=== PATIENT | male | born 2000 | race Caucasian/White ===

== ENCOUNTER 2020-01-09 14:26 | Emergency (ER) | payer BC, SELFPAY | END 2020-01-09 18:30 | disposition left against medical advice (07) | LOC: HO.ED 18:27 | PROVIDERS: Emergency Provider Emergency Medicine | DX: H57.13 Ocular pain, bilateral (principal); Z20.828 Contact with and (suspected) exposure to other viral communicable diseases | CPT/HCPCS: 99281 ==

== ENCOUNTER 2020-03-15 16:18 | Outpatient (REF) | payer BC, SELFPAY ==
--- NOTE | 2020-03-15 16:27 | XR_ITS ---
EXAMINATION: XR ORBITS CLINICAL INFORMATION: Rule out periocular foreign body COMPARISON: None TECHNIQUE: 4 views of the orbits were obtained. FINDINGS: No radiopaque soft tissue foreign body is seen. Bony structures are normal. Visualized paranasal sinuses are clear. XR/XR orbit min 4V IMPRESSION: No radiopaque foreign body seen.
== END 2020-03-15 16:19 | disposition home or self-care (01) ==
LOC: HO.XRAY 16:18
PROVIDERS: Visit Provider Specialist
DX: Z03.89 Encounter for observation for other suspected diseases and conditions ruled out (principal)
CPT/HCPCS: 70200

== ENCOUNTER 2020-04-04 14:48 | Outpatient (REF) | payer BC, SELFPAY | END 2020-04-04 14:49 | disposition home or self-care (01) | LOC: HO.LAB 14:48 | PROVIDERS: Visit Provider Internal Medicine | DX: Z20.828 Contact with and (suspected) exposure to other viral communicable diseases (principal) | CPT/HCPCS: C9803; U0003 ==

== ENCOUNTER 2020-05-20 22:26 | Emergency (ER) | payer OTHER, BC, SELFPAY ==
--- NOTE | ~2020-05-20 | XR_ITS ---
EXAMINATION: XR HAND, LEFT CLINICAL INFORMATION: Evaluate for infection. COMPARISON: None TECHNIQUE: PA, lateral, and oblique views of the left hand. FINDINGS: Mild soft tissue swelling at the distal aspect of the left thumb. No soft tissue calcification or radiopaque foreign body. No osseous erosion or periosteal reaction. No acute fracture or dislocation. No joint space narrowing or marginal osteophytes. XR/XR hand LT min 3V IMPRESSION: Mild soft tissue swelling at the distal left thumb. No acute osseous abnormality. No radiopaque foreign body.
[2020-05-20 22:36] VITALS: BP 152/96; PULSE 88; RESP 16; TEMP 37.3; O2SAT 99; BMI 36.6
--- NOTE | 2020-05-20 22:43 | ED_ITS ---
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 Related Data Previous Rx's Medication Instructions Recorded clindamycin-benzoyl peroxide 1 appl TOPICAL BID #35 g 05/20/20 doxycycline hyclate 100 mg PO BID #20 tab 05/20/20 Allergies Allergy/AdvReac Type Severity Reaction Status Date / Time No Known Allergies Allergy Verified 05/20/20 22:43 [No Known Allergies*] Review of Systems Review of Systems: All other systems are reviewed and are negative Constitutional: Reports as per HPI and Reports no additional constitutional complaints Eyes: Reports as per HPI and Reports no additional eye complaints Reports system reviewed and no additional complaints, except as documented Cardiovascular: Reports as per HPI and Reports no additional cardiovascular complaints Respiratory: Reports as per HPI and Reports no additional respiratory complaints Gastrointestinal: Reports as per HPI and Reports no additional gastrointestinal complaints Genitourinary: Reports no additional female genitourinary complaints Musculoskeletal: Reports no additional musculoskeletal complaints Skin/Breast: Reports system reviewed and no additional complaints, except as docu Psychiatric: Reports no additional psychiatric complaints Endocrine: Reports no additional endocrine complaints Hematologic/Lymphatic: Reports no additional hematologic/lymphatic complaints Allergic/Immunologic: Reports no additional allergic/immunologic complaints Reports system reviewed and no additional complaints, except as documented and Reports Abnormal speech present [facility] Past Medical History Medical History No known health problems Social History Social History Smoked in Last 30 Days: No Use of substances other than those prescribed or required for medical reasons: No Any prior treatment program specific to substance use: No Advance Directives: No Advance Directives Information Provided: Yes Physical Exam Vital Signs: Vital Signs: Last Vital Signs Temp 99.2 F 05/20/20 22:36 Pulse 88 05/20/20 22:36 Resp 16 05/20/20 22:36 BP 152/96 H 05/20/20 22:36 Pulse Ox 99 05/20/20 22:36 Body Mass Index 36.6 Vital signs have been reviewed as normal and appeared to be correct. Blood pressure in the high range. Heart rate normal. Respiration rate normal. Temperature low-grade fever. Oxygen saturation normal. Appearance: Alert. Oriented X3. No acute distress. Head: Normal external exam. Normocephalic. Atraumatic. No Mclean signs noted. No raccoon eyes noted Eyes: PERRLA. EOMI. Conjunctiva and sclera normal. Eyelids normal. ENT: TM's Normal. Pharynx normal. Uvula midline. Moist mucous membranes. No trismus noted. No drooling noted. No muffled voice noted. Neck: Normal inspection. Neck supple. FROM. No adenopathy. Thyroid Normal. No meningeal signs. No neck mass noted. CVS: Normal heart rate and rhythm. Heart sound normal. No murmurs noted. Pulses normal throughout. Respiratory: No respiratory distress. Painless inspiration. Breath sounds normal. No wheezes/rales/rhonchi noted. Chest nontender. No accessory muscle usage noted or decreased air movement noted. Abdomen: Soft and nontender. Bowel sounds normal in all 4 quadrants. No distention noted. No organomegaly noted. No visible injury noted. Back: No CVA tenderness. Full range of motion noted. Skin: Skin warm and dry. Normal skin color. Normal skin turgor. No rashes/lesions/lacerations noted. Extremities: Left thumb exam: Missing a middle part of the thumb nail proximally, redness hotness at the nail bed/distal some, no fluctuation. Neurovascular intact, cap refill less than 2 seconds, sensation to light touch is intact. Neuro: Oriented X 3. No motor deficit. No sensory deficit. Reflexes normal. Course Course Course Narrative: Right handed patient, Left thumb infection after injury with electrical drill, cellulitis at the nail bed. Start the patient on doxycycline p.o. and clindamycin topical. MDM - Wound/Laceration Imaging Data Left thumb x-ray: Radiologist's impression: Mild soft tissue swelling at the distal left thumb. No acute osseous abnormality. No radiopaque foreign body. Discharge Plan Discharge Clinical Impression: Infected wound Patient Disposition: Home, Self-Care Instructions: Cellulitis (ED) Additional Instructions: Return to the emergency department immediately if any worsening of the redness, or increased the pain in the thumb, will discharge from the wound. Keep the wound dry and clean and intact at all times. 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 Prescriptions: New doxycycline hyclate 100 mg tablet 100 mg PO BID Qty: 20 RF: 0 clindamycin-benzoyl peroxide 1-5 % gel 1 appl topical BID Qty: 35 RF: 0 Referrals: Physician,None [Primary Care Provider] - 2 days
== END 2020-05-20 23:31 | disposition home or self-care (01) ==
PROVIDERS: Emergency Provider Emergency Medicine
DX: L08.89 Other specified local infections of the skin and subcutaneous tissue (principal); M79.645 Pain in left finger(s); Z79.899 Other long term (current) drug therapy
CPT/HCPCS: 73130; 99283; 99284

== ENCOUNTER → 2021-07-15 10:56 | Outpatient (BNVA) | payer OTHER, SELFPAY | PROVIDERS: Visit Provider Physician Assistant Medical | DX: T22.211A Burn of second degree of right forearm, initial encounter (principal); X08.8XXA Exposure to other specified smoke, fire and flames, initial encounter; Z23 Encounter for immunization | CPT/HCPCS: 90715; 99202 ==

== ENCOUNTER → 2021-07-18 14:52 | Outpatient (BNVA) | payer OTHER, SELFPAY | PROVIDERS: Visit Provider Physician Assistant Medical | DX: T22.211A Burn of second degree of right forearm, initial encounter (principal); X08.8XXA Exposure to other specified smoke, fire and flames, initial encounter | CPT/HCPCS: 87071; 87077; 87186; 87205; 99213 ==

== ENCOUNTER → 2021-07-26 08:31 | Outpatient (BNVA) | payer OTHER, SELFPAY | PROVIDERS: Visit Provider Physician Assistant Medical | DX: T22.211A Burn of second degree of right forearm, initial encounter (principal); B95.0 Streptococcus, group A, as the cause of diseases classified elsewhere | CPT/HCPCS: 99213 ==